=== PATIENT | male | born 1945 | race Caucasian/White ===

== ENCOUNTER 2016-07-17 13:55 | Inpatient (IN) | payer MEDICARE, OTHER ==
[2016-07-17] MEDS ORDERED: MORPHINE SULFATE 10 MG/ML SOL IV ONE (14:22)
[2016-07-17] MEDS ORDERED: SODIUM CHLORIDE 0.9% 1000ML 1,000 ML IV SCH (14:30)
[2016-07-17] MEDS ORDERED: MORPHINE SULFATE 10 MG/ML SOL ONE (14:38)
[2016-07-17 14:42] LABS: BASOPHILS % (AUTO) 1 % (0-3); EOSINOPHILS % (AUTO) 1 % (0-9); HEMATOCRIT 39 % (39-53); MEAN CORPUSCULAR HGB CONC 39.9 gm/dl (32.0-36.0); MONOCYTES % (AUTO) 9.8 % (0-12); NEUTROPHILS % (AUTO) 68.7 % (37-80)
[2016-07-17 14:53] LABS: ALBUMIN 3.7 gm/dl (3.4-5.0); CALCIUM 9.3 mg/dl (8.5-10.1)
[2016-07-17 14:55] LABS: MEAN CORPUSCULAR VOLUME 108 fL (80-100)
[2016-07-17] MEDS ORDERED: ONDANSETRON HCL 4 MG/2 ML SOL IV ONE (15:10)
[2016-07-17] MEDS ORDERED: ONDANSETRON HCL 4 MG/2 ML SOL ONE (15:11)
[2016-07-17 15:25] LABS: ANISOCYTOSIS MOD AMT; OVALOCYTES PRESENT
[2016-07-17] MEDS: SODIUM CHLORIDE 0.9% 1000ML 1,000 ML IV SCH (20:30)
[2016-07-17] MEDS: ATENOLOL 25 MG TAB PO SCH (20:33)
[2016-07-17] MEDS ORDERED: HYDROMORPHONE HCL 2 MG/ML 1 ML SOL IV PRN (21:25)
[2016-07-17] MEDS ORDERED: ONDANSETRON HCL 4 MG TAB PO PRN (21:26)
[2016-07-18] MEDS: SODIUM CHLORIDE 0.9% 1000ML 1,000 ML IV SCH ×4 (04:29→21:10)
[2016-07-18 07:34] LABS: HEMATOCRIT 36 % (39-53); MEAN CORPUSCULAR HGB CONC 38.9 gm/dl (32.0-36.0)
[2016-07-18 07:36] LABS: ALBUMIN 2.9 gm/dl (3.4-5.0); CALCIUM 8.3 mg/dl (8.5-10.1); POTASSIUM 3.8 mMol/L (3.5-5.1)
[2016-07-18 07:38] LABS: MEAN CORPUSCULAR VOLUME 109 fL (80-100)
[2016-07-18 08:04] LABS: BASOPHILS % (MANUAL) 0 % (0-3); EOSINOPHILS % (MANUAL) 4 % (0-9); LYMPHOCYTES % (MANUAL) 30 % (10-50)
[2016-07-18 08:05] LABS: ANISOCYTOSIS SLIGHT AMT
[2016-07-18] MEDS: ATENOLOL 25 MG TAB PO SCH (20:01)
[2016-07-19] MEDS: SODIUM CHLORIDE 0.9% 1000ML 1,000 ML IV SCH (05:31)
[2016-07-19 10:01] VITALS: BP 156/78; PULSE 73; RESP 18; TEMP 98.2; O2SAT 93
== END 2016-07-19 11:30 | disposition home or self-care (01) | DRG 390 ==
LOC: ED 13:55 → UNDOADMIN 16:58 → ACUTE CARE 16:58
PROVIDERS: ADMIT Family Medicine; ATTEND Family Medicine
DX: K56.60 Unspecified intestinal obstruction (principal); I10 Essential (primary) hypertension; E78.5 Hyperlipidemia, unspecified
CPT/HCPCS: 36415; 74177; 80053; 85007; 85025; 85027; 94762; 96365; 96374; 96375; 99284; J1170; J2270; J2405; Q9967